=== PATIENT | female | born 1950 | race Caucasian/White ===

== ENCOUNTER 2020-05-14 16:04 | Emergency (ER) | payer MEDICARE, SELFPAY ==
[2020-05-14 16:14] VITALS: BP 153/91; PULSE 122; RESP 18; TEMP 36.8; O2SAT 98
--- NOTE | 2020-05-14 16:18 | ED.EYEPROB ---
HPI - Eye Problem General Chief complaint: Eye Problems Stated complaint: right eye pain/redness Time Seen by Provider: 05/14/20 16:18 Source: patient Mode of arrival: ambulatory Limitations: no limitations History of Present Illness HPI Narrative: Zahra Aviles is a 70 yo female with a PMH of anxiety who comes to express care complaining of right eye pain and irritation started this morning stated that there was discharge in the corner of her eye when she woke. She has not put anything into her eye no contacts has not stuck herself with a mascara wand or any other kind of object. She states that she has 3-10 pain presently and there is a lot of blinking, denies allergies Related Data Home Medications Medication Instructions Recorded Confirmed lorazepam 1 mg BID PRN 05/14/20 05/14/20 mirtazapine 30 mg HS 05/14/20 05/14/20 Allergies Allergy/AdvReac Type Severity Reaction Status Date / Time No Known Allergies Allergy Unknown Verified 05/14/20 16:09 Review of Systems Review of Systems: Narrative: CONSTITUTIONAL: Denies fever, chills, sweats. EYES: Denies visual changes, has redness, had discharge to morning ENT: Denies rhinorrhea, congestion, sore throat, otalgia. CARDIOVASCULAR: Denies chest pain, palpitations, edema. RESPIRATORY: Denies dyspnea, wheezing, cough GASTROINTESTINAL: Denies abdominal pain, nausea, vomiting, diarrhea. GENITOURINARY: Denies dysuria, hematuria, abnormal discharge SKIN: Denies rash or itching. NEUROLOGIC: Denies numbness, or focal weakness. PSYCHIATRIC: Denies anxiety or depression. PMFSH Past Medical History Medical History Anxiety Family History Family History Other No active medical problems Social History Social History (Updated 05/14/20 @ 16:27 by Adele Melgar CNP) Smoking status: Former smoker Alcohol intake: never Gender identity (if verbalized by the patient): Female Comments At time of signature, I agree with nursing past medical, surgical, social and family history. There is no relevant family history pertinent to the presenting complaint. Exam Narrative: Exam Narrative: GENERAL: This is a well-nourished, well-developed patient, in mild distress. HEAD: normocephalic, atraumatic. EYES: Sclera clear/white on left, appears somewhat injected and irritated on the right. Vision is grossly intact. EARS: External ears normal, auditory canals clear and without drainage, TMs normal without perforation. Hearing grossly intact. NOSE: External nose normal without nasal discharge, nares without redness, no rhinorrhea. THROAT: Mucous membranes moist, NECK: Neck supple, non-tender CARDIOVASCULAR: Regular rate and rhythm without murmurs, gallops, or rubs. RESPIRATORY: Clear to auscultation. Breath sounds equal bilaterally. No wheezes, rales, or rhonchi. GASTROINTESTINAL: Abdomen soft, , SKIN: warm, intact with no suspicious lesions or rash, good texture and turgor. NEURO: awake, alert, and oriented to person, place and time. There were no obvious focal neurologic abnormalities. Steady gait EXTREMITIES: Normal range of motion. BACK: Nontender without deformity Course Course Emergency Course: Little lamp exam negative started on polymyxin eyedrops Vital Signs Vital signs: Vital Signs Temperature 98.2 F 05/14/20 16:14 Pulse Rate 122 H 05/14/20 16:14 Respiratory Rate 18 05/14/20 16:14 Blood Pressure 153/91 H 05/14/20 16:14 Pulse Oximetry 98 05/14/20 16:14 Temperature 98.2 F 05/14/20 16:14 Pulse Rate 122 H 05/14/20 16:14 Respiratory Rate 18 05/14/20 16:14 Blood Pressure 153/91 H 05/14/20 16:14 Pulse Oximetry 98 05/14/20 16:14 Procedures Other Procedure Procedure 1: Other Procedure: Fluorescein stain to eye after use of tetracaine drops, no corneal abrasion seen. Started patient on polymyxin eyedrops, tolerat
== END 2020-05-14 16:40 | disposition home or self-care (01) ==
PROVIDERS: Emergency Provider Nurse Practitioner; PCP Internal Medicine
DX: H10.9 Unspecified conjunctivitis (principal); Z87.891 Personal history of nicotine dependence; F41.9 Anxiety disorder, unspecified
CPT/HCPCS: 99213; A9270; G0463

== ENCOUNTER 2020-08-18 16:15 | Emergency (ER) | payer MEDICARE, SELFPAY ==
[2020-08-18 16:41] VITALS: BP 126/78; PULSE 113; RESP 24; TEMP 36; O2SAT 97
--- NOTE | 2020-08-18 17:18 | ED.SKABFB ---
HPI - Skin/Abscess/Foreign Bdy General Chief complaint: Skin/Abscess/Foreign Body Stated complaint: Rash Time Seen by Provider: 08/18/20 17:00 Source: patient and RN notes reviewed Mode of arrival: ambulatory Limitations: no limitations History of Present Illness HPI narrative: 70 year old female presents to [facility] care with complaints of rash to her left axilla and left rib area for one week duration. Patient states that initially it was painful and burning but discomfort has improved with only minimal burning and itching. Patient states that she has applied some antibiotic ointment to area but has not taken any oral Tylenol or Ibuprofen. Patient states that she has not had any known fevers, chills or sweats, denies any drainage from rash area. She reports no new medications, foods, lotions or any new soaps. MD complaint: rash Onset (ago): week(s) (1) Location: chest (left lateral) Severity: mild Severity scale (1-10): 2 Quality: burning Pain Consistency: intermittent Associated symptoms: denies other symptoms Treatments prior to arrival: other (antibacterial ointment) Related Data Home Medications Medication Instructions Recorded Confirmed lorazepam 1 mg BID PRN 05/14/20 05/14/20 mirtazapine 30 mg HS 05/14/20 05/14/20 Allergies Allergy/AdvReac Type Severity Reaction Status Date / Time No Known Allergies Allergy Unknown Verified 05/14/20 16:09 Review of Systems Review of Systems: All systems reviewed & are unremarkable except as noted in HPI and below Constitutional: Constitutional: Reports as per HPI and Reports no additional constitutional complaints Eyes: Eyes: Reports as per HPI and Reports no additional eye complaints ENT: Reports system reviewed and no additional complaints, except as documented and Reports as per HPI Cardiovascular: Cardiovascular: Reports as per HPI and Reports no additional cardiovascular complaints Comments: relays history of angina Respiratory: Respiratory: Reports as per HPI and Reports no additional respiratory complaints Comments: history of tobacco abuse Gastrointestinal: Gastrointestinal: Reports as per HPI and Reports no additional gastrointestinal complaints Genitourinary: Genitourinary: Reports no additional female genitourinary complaints and Reports as per HPI Musculoskeletal: Musculoskeletal: Reports no additional musculoskeletal complaints and Reports as per HPI Integumentary/Breasts: Skin/Breast: Reports system reviewed and no additional complaints, except as docu, Reports as per HPI and Reports rash Comments: to left axilla and along left rib area Neurologic: Reports system reviewed and no additional complaints, except as documented and Reports as per HPI Psychiatric: Psychiatric: Reports no additional psychiatric complaints, Reports as per HPI, Reports anxiety and Reports depression Endocrine: Endocrine: Reports no additional endocrine complaints and Reports as per HPI Hematologic/Lymphatic: Hematologic/Lymphatic: Reports no additional hematologic/lymphatic complaints Allergic/Immunologic: Allergic/Immunologic: Reports no additional allergic/immunologic complaints and Reports as per HPI FOR[facility], [facility] Past Medical History Medical History (Updated 08/20/20 @ 09:43 by Justyna Walker NP) Angina pectoris Anxiety Depression GERD (gastroesophageal reflux disease) Surgical History Surgical History (Updated 08/20/20 @ 09:33 by Justyna Walker NP) Hx of cholecystectomy Tubal ligation status Family History Family History (Updated 08/20/20 @ 09:33 by Justyna Walker NP) Father Heart disease Mother Hypertension Grandparent Diabetes mellitus Social History Social History (Updated 08/20/20 @ 09:36 by Justyna Walker NP) Smoking packs per day: 0.5 Smoking cigarettes per day: 10.0 Years smoked: 20 Smoking pack-years: 10.00 Smoking status: Current every day smoker Tobacco type: cigarettes Alcohol intake: never Substance use: never
== END 2020-08-18 17:35 | disposition home or self-care (01) ==
PROVIDERS: Emergency Provider Registered Nurse; PCP Internal Medicine
DX: B02.9 Zoster without complications (principal); F17.210 Nicotine dependence, cigarettes, uncomplicated; K21.9 Gastro-esophageal reflux disease without esophagitis; F41.9 Anxiety disorder, unspecified; F32.9 Major depressive disorder, single episode, unspecified
CPT/HCPCS: 99213; G0463

== ENCOUNTER 2020-10-07 14:34 | Emergency (ER) | payer MEDICARE, SELFPAY ==
[2020-10-07 14:54] VITALS: BP 147/84; PULSE 107; RESP 16; TEMP 36.6; O2SAT 96
--- NOTE | 2020-10-07 15:05 | ED.EYEPROB ---
HPI - Eye Problem General Chief complaint: Eye Problems Stated complaint: redness/painful left eye Time Seen by Provider: 10/07/20 15:05 Source: patient Mode of arrival: ambulatory Limitations: no limitations History of Present Illness HPI Narrative: 70 year old female who presents to [facility] care with complaints of having discomfort and eye redness to her left eye since yesterday. Patient denies any known injury to her left eye, denies any foreign body to eye or any drainage from eye. Patient has redness noted to inner sclera of her left eye with mild redness noted to conjunctiva of her left eye, denies any change in her vision with Right eye 20/200, left eye 20/200 with no corrective lens, patient states she does not wear her glasses. chief complaint: eye pain and eye redness Onset (ago): day(s) (1) Onset description: unknown Duration: constant Location: left eye Eye Symptoms: redness and pain (achy) Mechanism: none Severity: moderate Severity scale (1-10): 5 If Pain, Quality: aching Associated symptoms: none Treatments Prior to Arrival: none Related Data Home Medications Medication Instructions Recorded Confirmed lorazepam [Ativan] 1 mg PO BID 10/07/20 10/07/20 mirtazapine [Remeron] 30 mg PO HS 10/07/20 10/07/20 Allergies Allergy/AdvReac Type Severity Reaction Status Date / Time No Known Allergies Allergy Unknown Verified 10/07/20 14:45 Review of Systems Review of Systems: Narrative: CONSTITUTIONAL: Denies fever, chills, or sweats. EYES: Denies visual changes,positive for redness to her left eye with no drainage noted. ENT: Denies rhinorrhea, congestion, sore throat, or otalgia. CARDIOVASCULAR: Denies chest pain, palpitations, or edema. RESPIRATORY: Denies cough or dyspnea. GASTROINTESTINAL: Denies abdominal pain, nausea, vomiting, or diarrhea. GENITOURINARY: Denies dysuria or hematuria. SKIN: Denies rash or itching. MUSCULOSKELETAL: Denies back pain, joint pain, or myalgia. NEUROLOGIC: Denies headache, numbness, or weakness. PSYCHIATRIC: Positive history of anxiety or depression and insomnia. All systems reviewed & are unremarkable except as noted in HPI and below [facility] Past Medical History Medical History (Updated 10/10/20 @ 14:58 by Justyna Walker NP) Angina pectoris Anxiety Depression GERD (gastroesophageal reflux disease) Insomnia Surgical History Surgical History Hx of cholecystectomy Tubal ligation status Family History Family History Father Heart disease Mother Hypertension Grandparent Diabetes mellitus Social History Social History Smoking packs per day: 0.5 Smoking cigarettes per day: 10.0 Years smoked: 20 Smoking pack-years: 10.00 Smoking status: Current every day smoker Tobacco type: cigarettes Alcohol intake: never Substance use: never Gender identity (if verbalized by the patient): Female Comments At time of signature, agree with nursing past medical, surgical, social and family history. There is no relevant family history pertinent to the presenting complaint Exam Narrative: Exam Narrative: GENERAL: Well-appearing, well-nourished, and in no acute distress. HEAD: Normocephalic, atraumatic. EYES: PERRLA and EOMI.redness to inner aspect of left eye in sclera and conjunctiva mildly red in comparison to right eye, denies any change in vision, voices aching to eye, denies any drainage or any sharp pain, states dryness feeling of her left eye. ENT: Nares clear, no rhinorrhea or epistaxis. Mucous membranes moist. NECK: Supple.no lymphadenopathy CHEST: Clear to auscultation. No respiratory distress.SAO2 96% on room air HEART: Regular rate and rhythm. No murmur heard. Normal peripheral pulses. ABDOMEN: Soft, nontender, nondistended, normal active bowel sounds. EXTREMITIES: Normal range of mot
== END 2020-10-07 15:32 | disposition home or self-care (01) ==
PROVIDERS: Emergency Provider Registered Nurse; PCP Internal Medicine
DX: H11.32 Conjunctival hemorrhage, left eye (principal); F17.210 Nicotine dependence, cigarettes, uncomplicated; I20.9 Angina pectoris, unspecified; K21.9 Gastro-esophageal reflux disease without esophagitis; F41.9 Anxiety disorder, unspecified
CPT/HCPCS: 99213; G0463

== ENCOUNTER 2021-02-05 18:02 | Emergency (ER) | payer MEDICARE, SELFPAY ==
[2021-02-05 18:12] VITALS: BP 120/90; PULSE 108; RESP 16; TEMP 36.3; O2SAT 97
--- NOTE | 2021-02-05 18:27 | ED.GENADULT ---
HPI - General Adult General Chief complaint: Eye Problems Stated complaint: RIGHT EYE PAIN Time Seen by Provider: 02/05/21 18:27 Source: patient and RN notes reviewed Mode of arrival: ambulatory Limitations: no limitations History of Present Illness HPI narrative: 70-year-old female presents with complaints of right eye redness, irritation, some burning, and itching for 1 day. ?Zahra reports awakened this morning with eye redness and slightly matted, symptoms increased throughout the day. ?No treatment. ?No pain. ?No copious drainage. ?Exacerbating factors are eye opening and light. ?Relieving factors is closing eyes. ?Does not wear glasses or contact lenses. ?No blurred vision, double vision, sensation of foreign body, or pain of eye with movement. ?No fever. ?No URI symptoms. Remains active. ?The patient reports she has not been diagnosed with COVID-19. ?The patient reports she is not waiting for the results of a COVID-19 lab test. ?The patient reports she does not have chills, weakness, or fatigue. The patient reports she does not have a new or worsening cough or shortness of breath. Denies chest pain. ?The patient reports she does not have any rhinorrhea, congestion, sore throat, loss of taste or smell, nausea, vomiting, abdominal pain, and diarrhea. Tolerating po intake well. Denies recent traveling. Denies concerns for COVID-19 or exposures. ?At this time, the patient is not suspected of having COVID-19. Some parts of this dictation were generated by voice recognition software and may contain typographical and/or grammatical inaccuracies. Related Data Home Medications Medication Instructions Recorded Confirmed lorazepam [Ativan] 1 mg PO BID 10/07/20 10/07/20 mirtazapine [Remeron] 30 mg PO HS 10/07/20 10/07/20 Allergies Allergy/AdvReac Type Severity Reaction Status Date / Time No Known Allergies Allergy Unknown Verified 10/07/20 14:45 Review of Systems Review of Systems: Narrative: CONSTITUTIONAL: Denies fever, chills, sweats. EYES: Denies visual changes. Complains of RT eye redness, itching, and irritation. ENT: Denies rhinorrhea, congestion, sore throat, otalgia. CARDIOVASCULAR: Denies chest pain, palpitations, edema. RESPIRATORY: Denies dyspnea, wheezing, cough. GASTROINTESTINAL: Denies abdominal pain, nausea, vomiting, diarrhea. SKIN: Denies rash or itching. MUSCULOSKELETAL: Denies acute back pain, joint pain, or myalgia. NEUROLOGIC: Denies numbness or focal weakness. PSYCHIATRIC: Denies anxiety or depression. All systems reviewed & are unremarkable except as noted in HPI and below. PMFSH Past Medical History Medical History Angina pectoris Anxiety Depression GERD (gastroesophageal reflux disease) Insomnia Surgical History Surgical History Hx of cholecystectomy Tubal ligation status Family History Family History Father Heart disease Mother Hypertension Grandparent Diabetes mellitus Social History Social History (Updated 02/05/21 @ 18:35 by BREEZY Sow) Smoking packs per day: 0.5 Smoking cigarettes per day: 10.0 Years smoked: 20 Smoking pack-years: 10.00 Smoking status: Current every day smoker Tobacco type: cigarettes Alcohol intake: never Substance use: never Living arrangements: with family Occupation/Education: other Additional occupation/education comments: disable Gender identity (if verbalized by the patient): Female Sexual Orientation (if Verbalized by the Patient): Straight or Heterosexual Comments At time of signature, agree with the nurse past medical, surgical, social, and family history. There is no relevant family history pertinent to the presenting complaint. Exam Narrative: Exam Narrative: GENERAL: This is a well-nourished, well-developed patient, in no
== END 2021-02-05 18:44 | disposition home or self-care (01) ==
PROVIDERS: Emergency Provider Nurse Practitioner Family; PCP Internal Medicine
DX: H10.9 Unspecified conjunctivitis (principal); F17.210 Nicotine dependence, cigarettes, uncomplicated; F41.9 Anxiety disorder, unspecified; K21.9 Gastro-esophageal reflux disease without esophagitis; I20.9 Angina pectoris, unspecified
CPT/HCPCS: 99213; G0463

== ENCOUNTER 2021-02-20 18:40 | Emergency (ER) | payer MEDICARE, SELFPAY ==
--- NOTE | 2021-02-20 18:45 | ED.EYEPROB ---
HPI - Eye Problem General Chief complaint: Eye Problems Stated complaint: REDNESS LEFT EYE Time Seen by Provider: 02/20/21 18:58 Source: patient and RN notes reviewed Mode of arrival: ambulatory Limitations: no limitations History of Present Illness HPI Narrative: 70-year-old female presents concern for left eye irritation, drainage, redness, feeling of foreign body. Denies any known scratch, trauma, vision changes. Denies intervention. Denies upper respiratory symptoms, rhinorrhea, nasal congestion. Denies headache. chief complaint: eye redness Related Data Home Medications Medication Instructions Recorded Confirmed lorazepam [Ativan] 1 mg PO BID 10/07/20 02/20/21 mirtazapine [Remeron] 30 mg PO HS 10/07/20 02/20/21 Allergies Allergy/AdvReac Type Severity Reaction Status Date / Time No Known Allergies Allergy Unknown Verified 02/20/21 18:58 Review of Systems Review of Systems: Narrative: CONSTITUTIONAL: Denies malaise, chills, sweats, or fever. EYES: Denies visual changes. Reports left eye redness, irritation, discharge. ENT: Denies rhinorrhea, congestion, sinus pain, otalgia or sore throat. SKIN: Denies rash or itching. NEUROLOGIC: Denies headache. All systems reviewed & are unremarkable except as noted in HPI and below PMFSH Past Medical History Medical History Angina pectoris Anxiety Depression GERD (gastroesophageal reflux disease) Insomnia Surgical History Surgical History Hx of cholecystectomy Tubal ligation status Family History Family History Father Heart disease Mother Hypertension Grandparent Diabetes mellitus Social History Social History (Updated 02/05/21 @ 18:35 by BREEZY Sow) Smoking packs per day: 0.5 Smoking cigarettes per day: 10.0 Years smoked: 20 Smoking pack-years: 10.00 Smoking status: Current every day smoker Tobacco type: cigarettes Alcohol intake: never Substance use: never Additional occupation/education comments: disable Gender identity (if verbalized by the patient): Female Comments At time of signature, agree with nursing past medical, surgical, social and family history. There is no relevant family history pertinent to the presenting complaint Exam Narrative: Exam Narrative: GENERAL: Well-appearing, well-nourished, and in no acute distress. HEAD: Normocephalic, atraumatic. EYES: PERRLA, EOMI. No nystagmus. Right eye conjunctivae clear, sclera clear. Left eye sclera and conjunctive injected, drainage noted. No foreign body or abrasion noted upon Little lamp exam ENT: Nares clear, turbinates pink, no rhinorrhea or epistaxis. Mucous membranes moist. NECK: Supple. No lymphadenopathy. CHEST: No respiratory distress. Speaks in full sentences. HEART: Regular rate and rhythm. SKIN: Warm, dry, no rash. NEURO: Alert and oriented x3. PSYCH: Normal mood and affect Course Course Emergency Course: Patient is aware of diagnosis, understands and agrees to treatment plan. Anticipatory guidance given. Patient agrees to follow-up as directed and is aware of reasons to seek care at the emergency department. Portions of this record may have been created with voice recognition software Vital Signs Vital signs: Reviewed. Procedures Other Procedure Procedure 1: Other Procedure: Tetracaine 1 gtt instilled in left eye, fluorescein stain applied. No corneal abrasion or foreign body noted eye washed with NS 100 ml. No foreign bodies or Tisha sign noted. MDM - Eye Problem MDM Narrative Medical decision making narrative: Consideration of the following conditions may be warranted for the presenting problem, they are not final diagnoses: Bacterial conjunctivitis, allergic conjunctivitis, viral conjunctivitis, foreign body, blepharitis, chalazion, hordeol
[2021-02-20 18:50] VITALS: BP 148/87; PULSE 109; RESP 16; TEMP 36.4; O2SAT 98
== END 2021-02-20 19:16 | disposition home or self-care (01) ==
PROVIDERS: Emergency Provider Nurse Practitioner
DX: H10.32 Unspecified acute conjunctivitis, left eye (principal); F17.210 Nicotine dependence, cigarettes, uncomplicated; I20.9 Angina pectoris, unspecified; K21.9 Gastro-esophageal reflux disease without esophagitis; F41.9 Anxiety disorder, unspecified
CPT/HCPCS: 99213; A9270; G0463